=== PATIENT | female | born 1935 | race Caucasian/White ===

== ENCOUNTER → 2017-11-19 | Outpatient (CLI) | payer MEDICARE, OTHER ==
[2014-01-20 10:00] VITALS: BP 192/88
[~2017-11-19] MED LIST: ANTACID PO; COREG12.5 MG PO; COZAAR100 MG PO; FUROSEMIDE40 MG PO; GOOD NEIGHBOR500 M2 PO; IMDUR 30MG30 MG/TAB PO; NATURAL VITAM1000 MG PO; NITROQUICK0.4 MG SL; OYSTER CAL 500500 MG PO; PRILOSEC 20MG20 MG PO; ST. JOSEPH81 M2 PO; TRICOR 48MG48 MG PO; VITAMIN B-121000 MCG PO; WARFARIN SOD5 MG PO
[2017-11-19 13:50] LABS: HEMATOCRIT 28.7 % (37.0-47.0); HEMOGLOBIN 9.4 g/dL (12.5-16.0); MEAN CELL VOLUME 92 fl (78-100); MEAN CORPUSCULAR HEMOGLOBIN 30 pg (27-31); MEAN CORPUSCULAR HGB CONC 33 g/dL (33-37); MEAN PLATELET VOLUME 9.5 fl (7.4-10.4); PLATELET COUNT 193 K/mm3 (130-400); RED BLOOD COUNT 3.13 M/mm3 (4.10-5.30); RED CELL DISTRIBUTION WIDTH 15.8 % (11.5-14.5); WHITE BLOOD COUNT 3.1 K/mm3 (4.8-10.8)
[2017-11-19 14:15] LABS: LYMPHOCYTE 31 % (20-51); MONOCYTE 11 % (3-10); NEUTROPHILS 52 % (42-75); OVALOCYTES 1+
== END ==
LOC: LAB 13:30
PROVIDERS: Family Medicine
DX: J18.9 Pneumonia, unspecified organism (principal); R07.89 Other chest pain

== ENCOUNTER 2021-03-15 12:58 | Outpatient (RCR) | payer MEDICARE, OTHER ==
[2014-01-20 10:00] VITALS: BP 192/88
== END 2021-06-13 ==
LOC: PT
DX: M54.2 Cervicalgia (principal)